=== PATIENT | female | born 1955 | race Caucasian/White ===

== ENCOUNTER 2021-01-31 15:06 | Inpatient (IN) | payer MEDICARE, OTHER ==
[~2021-01-31] VITALS: Ht 162.6 cm; Wt 111.6 kg
[~2021-01-31 15:06] MED LIST: ELIQUIS 5 MG TAB5 MG PO; MULTAQ400 MG PO
[2021-01-31 15:52] LABS: HEMOGLOBIN 15.6 gm/dl (12.3-15.3); RED BLOOD COUNT 5.29 M/UL (4.00-5.10); WHITE BLOOD COUNT 8.2 K/UL (4.5-11.0)
[2021-01-31 16:19] LABS: BUN/CREATININE RATIO 25 (0-10)
[2021-01-31] MEDS ORDERED: BETAPACE 80MG T80 MG PO (19:46)
[2021-02-01 02:35] LABS: HEMOGLOBIN 13.9 gm/dl (12.3-15.3); WHITE BLOOD COUNT 7.6 K/UL (4.5-11.0)
[2021-02-01 02:38] LABS: RED BLOOD COUNT 4.74 M/UL (4.00-5.10)
[2021-02-01 02:55] LABS: BUN/CREATININE RATIO 30 (0-10)
[2021-02-01] MEDS ORDERED: BETAPACE 80MG T80 MG PO (14:37)
== END 2021-02-01 16:40 | disposition home or self-care (01) | DRG 309 ==
LOC: ER1 15:06 → CDU 17:51 → PROG CARE 17:51
PROVIDERS: Emergency Medicine; ADMIT Internal Medicine
PROC: 5A2204Z Restoration of Cardiac Rhythm, Single (ICD-10-PCS; principal; 2021-02-01)
DX: I48.0 Paroxysmal atrial fibrillation (principal); Z68.41 Body mass index [BMI] 40.0-44.9, adult; R00.2 Palpitations; Z20.822 Contact with and (suspected) exposure to COVID-19; R79.1 Abnormal coagulation profile; I34.0 Nonrheumatic mitral (valve) insufficiency; E66.01 Morbid (severe) obesity due to excess calories; R42 Dizziness and giddiness; Z82.5 Family history of asthma and other chronic lower respiratory diseases; Z84.89 Family history of other specified conditions; Z79.01 Long term (current) use of anticoagulants
CPT/HCPCS: 36415; 71045; 80048; 80053; 82550; 82553; 83735; 83874; 83880; 84100; 84439; 84443; 84484; 85025; 85610; 85730; 93005; 99285; J1200; J2250; J3010; U0002

== ENCOUNTER → 2021-03-16 | Outpatient (CLI) | payer MEDICARE, OTHER ==
[~2021-03-16] MED LIST changes: +BETAPACE 80MG T80 MG PO; +MULTAQ 400 MG400 MG PO; +VITAMIN B-121000 MCG PO
== END ==
LOC: HEART 5 09:30
DX: I48.91 Unspecified atrial fibrillation (principal)

== ENCOUNTER 2021-05-02 14:31 | Inpatient (IN) | payer MEDICARE, OTHER ==
[~2021-05-02] VITALS: Ht 162.6 cm; Wt 99.8 kg
[~2021-05-02 14:31] MED LIST changes: -MULTAQ 400 MG400 MG PO; -VITAMIN B-121000 MCG PO
[2021-05-02 15:19] LABS: HEMOGLOBIN 16.2 gm/dl (12.3-15.3); RED BLOOD COUNT 5.46 M/UL (4.00-5.10); WHITE BLOOD COUNT 9.8 K/UL (4.5-11.0)
[2021-05-02] MEDS ORDERED: MULTAQ 400 MG400 MG PO ×2 (16:42→16:43)
[2021-05-02] MEDS ORDERED: VITAMIN B-121000 MCG PO (16:59)
[2021-05-02 17:07] LABS: BUN/CREATININE RATIO 19 (0-10)
[2021-05-03 03:19] LABS: WHITE BLOOD COUNT 8.8 K/UL (4.5-11.0)
[2021-05-03 03:24] LABS: HEMOGLOBIN 14.2 gm/dl (12.3-15.3); RED BLOOD COUNT 4.88 M/UL (4.00-5.10)
[2021-05-03 03:56] LABS: BUN/CREATININE RATIO 24 (0-10)
== END 2021-05-03 16:38 | disposition home or self-care (01) | DRG 310 ==
LOC: ER1 14:31 → PROG CARE 16:41 → CDU 16:41 → PROG CARE 18:12
PROVIDERS: Emergency Medicine; Physician Assistant; ADMIT Internal Medicine
PROC: 5A2204Z Restoration of Cardiac Rhythm, Single (ICD-10-PCS; principal; 2021-05-03)
DX: I48.19 Other persistent atrial fibrillation (principal); Z20.822 Contact with and (suspected) exposure to COVID-19; E66.9 Obesity, unspecified; I48.0 Paroxysmal atrial fibrillation; Z79.01 Long term (current) use of anticoagulants; Z82.49 Family history of ischemic heart disease and other diseases of the circulatory system; Z68.37 Body mass index [BMI] 37.0-37.9, adult
CPT/HCPCS: 36415; 71045; 80048; 80053; 82550; 82553; 83874; 84439; 84443; 84484; 85025; 93005; 96374; 99285; J1200; J2250; J2270; J3010; J7030; U0002

== ENCOUNTER 2021-09-01 13:06 | Emergency (ER) | payer MEDICARE, OTHER ==
[~2021-09-01 13:06] MED LIST changes: +MULTAQ 400 MG400 MG PO; +VITAMIN B-121000 MCG PO
[2021-09-01 13:44] LABS: HEMOGLOBIN 15.3 gm/dl (12.3-15.3); RED BLOOD COUNT 5.26 M/UL (4.00-5.10); WHITE BLOOD COUNT 7.8 K/UL (4.5-11.0)
[2021-09-01] MEDS ORDERED: LOPRESSOR 25 MG25 MG PO (15:48)
== END 2021-09-01 16:30 | disposition home or self-care (01) ==
LOC: ER1 13:06
PROVIDERS: Preventive Medicine Occupational Medicine
DX: I48.91 Unspecified atrial fibrillation (principal); Z87.891 Personal history of nicotine dependence; Z20.822 Contact with and (suspected) exposure to COVID-19
CPT/HCPCS: 0240U; 71045; 82550; 82553; 83605; 83690; 83874; 83880; 84484; 85025; 85610; 85652; 85730; 86140; 93005; 96374; 99285

== ENCOUNTER 2022-02-09 19:41 | Inpatient (IN) | payer MEDICARE, OTHER ==
[~2022-02-09] VITALS: Ht 162.6 cm; Wt 99.8 kg
[~2022-02-09 19:41] MED LIST changes: +LOPRESSOR 25 MG25 MG PO
[2022-02-09 20:23] LABS: HEMOGLOBIN 15.2 gm/dl (12.3-15.3); RED BLOOD COUNT 5.19 M/UL (4.00-5.10); WHITE BLOOD COUNT 10.2 K/UL (4.5-11.0)
[2022-02-10 05:04] LABS: HEMOGLOBIN 13.4 gm/dl (12.3-15.3)
[2022-02-10 05:13] LABS: RED BLOOD COUNT 4.65 M/UL (4.00-5.10); WHITE BLOOD COUNT 6.7 K/UL (4.5-11.0)
[2022-02-10 05:49] LABS: BUN/CREATININE RATIO 29 (0-10)
[2022-02-10] MEDS ORDERED: LOPRESSOR 25 MG25 MG PO (15:27)
== END 2022-02-12 11:36 | disposition home or self-care (01) | DRG 309 ==
LOC: ER1 19:41 → CDU 22:01
PROVIDERS: Emergency Medicine; ADMIT Internal Medicine
PROC: B24BZZZ Ultrasonography of Heart with Aorta (ICD-10-PCS; principal; 2022-02-10)
DX: I48.0 Paroxysmal atrial fibrillation (principal); N17.9 Acute kidney failure, unspecified; E86.0 Dehydration; E66.9 Obesity, unspecified; Z79.01 Long term (current) use of anticoagulants; Z82.49 Family history of ischemic heart disease and other diseases of the circulatory system; Z81.8 Family history of other mental and behavioral disorders; Z79.899 Other long term (current) drug therapy; Z68.37 Body mass index [BMI] 37.0-37.9, adult
CPT/HCPCS: ECHO; 71045; 80053; 82550; 82553; 83735; 84484; 85025; 93005; 93306; 96374; 99285; G0378